=== PATIENT | female | born 1965 | race Caucasian/White ===

== ENCOUNTER → 2023-06-01 18:01 | Outpatient (REF) | payer OTHER, SELFPAY | LOC: RAD 18:01 | PROVIDERS: ATTENDING PHYSICIAN Emergency Medicine; FAMILY PHYSICIAN Family Medicine | DX: M54.50 Low back pain, unspecified (principal) | CPT/HCPCS: 72100; 72170 ==

== ENCOUNTER → 2023-08-04 06:32 | Day surgery (SDC) | payer OTHER, SELFPAY | LOC: GI 06:32 | PROVIDERS: ATTENDING PHYSICIAN Internal Medicine | DX: K22.89 Other specified disease of esophagus (principal); K44.9 Diaphragmatic hernia without obstruction or gangrene; R12 Heartburn | CPT/HCPCS: 43239; 88305 ==

== ENCOUNTER 2023-08-04 16:24 | Emergency (ER) | payer OTHER, SELFPAY ==
[2023-08-04 16:38] VITALS: BP 125/74; BMI 27.3
[2023-08-04] MEDS: ZOFRAN ODT (ORALLY DISINTEGRATING) 4 MG PO (16:43)
[2023-08-04] MEDS: TYLENOL 1000 MG PO (16:44)
[2023-08-04 17:20] LABS: % Basophils 0.2 % (0-2); % Eosinophils 0.8 % (0-6); % Immature Granulocytes 0.2 % (0-0.5); % Lymphocytes 4.7 % (20.5-51.1); % Neutrophils 92.1 % (42.2-75.2); Absolute Lymphocytes 0.2 10^3/uL (1.2-3.4); Absolute Monocytes 0.1 10^3/uL (0.1-0.6); Absolute Neutrophils 4.7 10^3/uL (1.4-6.5); Hematocrit 39.9 % (37.0-47.0); Hemoglobin 13.4 g/dL (12.0-16.0); Mean Corp Hgb Conc. 33.6 g/dL (33.0-37.0); Mean Corpuscular Hgb 28.4 pg (27.0-31.0); Mean Corpuscular Volume 84.5 fL (81.0-99.0); Mean Platelet Volume 9.5 fL (7.4-10.4); Nucleated Red Blood Cells % 0 %; Platelet Count 188 10^3/uL (130-400); Red Blood Cell Count 4.72 10^6/uL (4.20-5.40); Red Cell Dist. Width 13.1 % (11.5-14.5); White Blood Cell Count 5.1 10^3/uL (4.8-10.8)
[2023-08-04 17:34] LABS: ALT (SGPT) 18 U/L (0-35); AST (SGOT) 19 U/L (14-36); Albumin 4.2 g/dl (3.5-5.0); Alkaline Phosphatase 66 U/L (38-126); Blood Urea Nitrogen 25 mg/dl (7-17); Calcium 9.4 mg/dl (8.4-10.2); Carbon Dioxide 24 mmol/L (22-30); Chloride 104 mmol/L (98-107); Estimated Creatinine Clearance 72 ml/min; Glucose 118 mg/dl (70-99); Lactic Acid 0.9 mmol/L (0.7-2.0); Potassium 3.9 mmol/L (3.5-5.1); Sodium 133 mmol/L (135-145); Total Bilirubin 0.5 mg/dl (0.2-1.3); Total Protein 7.2 g/dl (6.3-8.2); eGFR > 60.00
--- NOTE | 2023-08-04 19:25 | ED.GENMED ---
Addendum entered and electronically signed by Zechariah Multani DO 08/08/23 16:25:
Correction
pt was told by her GI physician that she did not aspirate
Original Note:
History of Present Illness
General
Chief Complaint: Fever
Source: patient and records
Exam Limitations: none
Time Seen by Provider: 08/04/23 19:13
Nursing documentation reviewed up to this point in time: agreed with
Travel History
Have you had any contact with someone who has COVID-19?: No
Do you have any symptoms of coronavirus? Fever > 100 degrees, chills, cough, shortness of breath, sore throat, loss of taste or smell, muscle aches, or headache?: No
History of Present Illness
History of Present Illness:
58-year-old female underwent upper endoscopy today with Dr. Beach since procedure she is felt fatigued, low-grade fever measured tympanically nausea vomiting after having a shake, no coughing no abdominal pain no dysuria no calf pain she was told by
the GI doctor she did aspirate, however was sent here to be evaluated
She takes omeprazole
Past History
Past History
ED Past Medical History: GERD (Hiatal hernia)
ED Past Surgical History: Other (Kidney donor)
Social History
Tobacco: Non-smoker
Alcohol: None
Drug: None
Personal:
Living: with family
Employment: Employed
Review of Systems
Review of Systems
Constitutional: Reports fever and fatigue
Respiratory: Denies cough or trouble breathing
ABD/GI: Reports nausea and vomiting; Denies abdominal pain
: Reports no symptoms
Musculoskeletal: Reports no symptoms
Neurological: Reports weakness
Endocrine: Reports no symptoms
Phy Exam
Physical Exam
Physical Exam:
Physical Exam
General: 58 female looks slightly uncomfortable but not
Neck: Lips are moist
Heart: s1/s2 regular rate and rhythm, no murmur. equal radial pulses.
Lungs: no acute respiratory distress. clear bilaterally
Abdomen: Soft nontender
Neuro: alert and oriented. no focal neurological deficits
Skin: no rash
Psychiatric: well kept. interactive and cooperative
Extremities: no edema. no calf tenderness.
Course
Orders/Labs/Results
Orders:
Orders
08/04/23 16:42
Acetaminophen [Tylenol] 1,000 mg .ROUTE .STK-MED ONE
Ondansetron Orally Disint [Zofran Odt (Orally Disintegrating)] 4 mg .ROUTE .STK-MED ONE
08/04/23 16:43
Ondansetron Orally Disint [Zofran Odt (Orally Disintegrating)] 4 mg PO NOW STA
08/04/23 16:44
Acetaminophen [Tylenol] 1,000 mg PO NOW STA
08/04/23 17:00
Complete Blood Count/With Diff Urgent
Comprehensive Metabolic Panel Urgent
Lactic Acid Urgent
Blood Culture Urgent
AUDELIA Source: Blood/Venous
Specimen Description:
08/04/23 19:23
0.9% Sodium Chloride 1000 ml [Nss] 1,000 ml IV BOLUS
CR Chest - 2 Views Urgent
Comment:
Reason For Exam: fever
08/04/23 19:43
COVID-19 Antigen Urgent
Source: Nasal Swab
Influenza A+B Rapid Molecular Urgent
AUDELIA Source: Nasal Swab
Specimen Description:
08/04/23 20:57
Urinalysis Reflex To Culture Urgent
Blood Culture Urgent
AUDELIA Source: Blood/Venous
Specimen Description:
Ondansetron Injectable [Zofran] 4 mg IV NOW STA
Abnormal Lab Results
08/04/23
17:00
Absolute Lymphs (auto) 0.2 L 10^3/uL
(1.2-3.4)
Neutrophils % 92.1 H %
(42.2-75.2)
Lymphocytes % 4.7 L %
(20.5-51.1)
Sodium 133 L mmol/L
(135-145)
BUN 25 H mg/dl
(7-17)
Glucose 118 H mg/dl
(70-99)
08/04/23 17:00
08/04/23 17:00
Vital Signs
Initial and Last Documented VS:
Initial Vital Signs
Temp Pulse Resp BP Pulse Ox
100.2 F 97 18 125/74 98
08/04/23 16:38 08/04/23 16:38 08/04/23 16:38 08/04/23 16:38 08/04/23 16:38
Last Documented Vital Signs
Temp Pulse Resp BP Pulse Ox
100.2 F 97 18 115/54 98
08/04/23 16:38 08/04/23 16:38 08/04/23 16:38 08/04/23 19:47 08/04/23 16:38
MDM/Problems Addressed
Differential Diagnosis Includes:
Coincidental viral syndrome, aspiration no signs of DVT, other
MDM/Problems Addressed:
Fever nausea
Chronic conditions affecting care:
GERD
*Radiology
Radiology exam reviewed: preliminary read by ED provider
*Pulse Oximetry
Patient hypoxic: no
*Critical Care Note
Total Time (30-74mins, 75-104mins- exclusive of procedures): Not Applicable
Update Note
Update Note:
Update labs noted, chest x-ray noted for report pending, patient feeling better abdomen is soft and nontender will send screening urine and blood culture, message sent to on-call GI
Patient instructured to return if worsening symptoms
ED Attending Note
-
Portions of this chart may have been created with voice recognition software.� Occasional wrong word or��sound alike� substitutions may have occurred due to the inherent limitations of voice recognition software.
Discharge Plan
Departure
Patient Disposition: Home (Routine Discharge)
Date of Disposition: 08/04/23
Time of Disposition: 20:58
Patient with high blood pressure during this ER visit?: No
Condition: Good
Covid-19: Negative COVID-19
Discharge Problem:
Vomiting
Instructions: Fever, Adult (DC)
Prescriptions:
No Action
ibuprofen 600 MG tablet
600 mg PO Q6 Qty: 20 0RF
Referrals:
Edwin Phillips MD [Family Provider] - Next open appointment
Activity Restrictions/Additional Instructions:
Tylenol as needed for fever Zofran as needed for nausea vomiting return to the ER for worsening symptoms
Follow-up with your primary care provider and/or slasher tender
Interventions
Interventions:
*Risk Screen - Suicide Last Done: 08/04/23 16:38
*Neglect/Abuse Screening Last Done: 08/04/23 16:38
ED- Fall Risk Assessment Last Done: 08/04/23 16:38
Discharge Date and Time
Print Language: IVORIAN
[2023-08-04] MEDS: NSS 1000 IV (19:42)
[2023-08-04 19:47] VITALS: BP 115/54
[2023-08-04 20:00] VITALS: BP 103/63
[2023-08-04 20:11] LABS: COVID-19 Antigen Negative (Negative)
[2023-08-04 21:00] VITALS: BP 108/58
[2023-08-04] MEDS: ZOFRAN 4 MG IV (21:04)
[2023-08-04 21:18] LABS: Urine Albumin Negative (Neg - Trace); Urine Bilirubin Negative (Negative); Urine Character Clear (Clear); Urine Color Yellow; Urine Glucose Negative (Negative); Urine Ketone Negative (Negative); Urine Leukocyte Trace (Negative); Urine Nitrite Negative (Negative); Urine Occult Blood 2+ (Negative); Urine Urobilinogen Negative (Neg - 1+)
[2023-08-04 21:25] LABS: Urine Squamous Cell 0-2 /LPF (Few); Urine White Cell 0-2 /HPF (0-5)
== END 2023-08-04 21:25 | disposition home or self-care (01) ==
LOC: EMR 16:24
PROVIDERS: Emergency Medicine; EMERGENCY PHYSICIAN Emergency Medicine; FAMILY PHYSICIAN Family Medicine
DX: R50.9 Fever, unspecified (principal)
CPT/HCPCS: 99282; 96374; 96361; 71046; 80053; 81003; 81015; 83605; 85025; 87040; 87502; 87811

== ENCOUNTER → 2024-02-15 16:45 | Outpatient (REF) | payer OTHER, SELFPAY | LOC: WDC 16:45 | PROVIDERS: ATTENDING PHYSICIAN Family Medicine | DX: Z12.31 Encounter for screening mammogram for malignant neoplasm of breast (principal) | CPT/HCPCS: 77063; 77067 ==

== ENCOUNTER → 2024-09-27 13:41 | Outpatient (REF) | payer OTHER, SELFPAY | LOC: DHSLP 13:41 | PROVIDERS: ATTENDING PHYSICIAN Family Medicine | DX: G47.33 Obstructive sleep apnea (adult) (pediatric) (principal) | CPT/HCPCS: 95800 ==

== ENCOUNTER → 2024-10-22 10:38 | Outpatient (REF) | payer OTHER, SELFPAY | LOC: RAD 10:38 | PROVIDERS: ATTENDING PHYSICIAN Internal Medicine; FAMILY PHYSICIAN Family Medicine | DX: R13.10 Dysphagia, unspecified (principal) | CPT/HCPCS: 74221 ==

== ENCOUNTER → 2024-11-06 09:30 | Outpatient (REF) | payer OTHER, SELFPAY | LOC: REG 09:30 | PROVIDERS: ATTENDING PHYSICIAN Internal Medicine; FAMILY PHYSICIAN Family Medicine | DX: T17.208A Unspecified foreign body in pharynx causing other injury, initial encounter (principal) | CPT/HCPCS: 74230 ==

== ENCOUNTER 2024-12-06 06:25 | Day surgery (SDC) | payer OTHER, SELFPAY | END 2024-12-06 13:25 | disposition home or self-care (01) | LOC: GI 06:25 | PROVIDERS: ATTENDING PHYSICIAN Internal Medicine | DX: Z12.11 Encounter for screening for malignant neoplasm of colon (principal); K64.4 Residual hemorrhoidal skin tags; K64.9 Unspecified hemorrhoids; R13.12 Dysphagia, oropharyngeal phase; R12 Heartburn; K44.9 Diaphragmatic hernia without obstruction or gangrene; D12.4 Benign neoplasm of descending colon; K63.5 Polyp of colon; K63.89 Other specified diseases of intestine; K22.89 Other specified disease of esophagus | CPT/HCPCS: 45385; 43239; 88305 ==

== ENCOUNTER → 2025-02-18 17:21 | Outpatient (REF) | payer OTHER, SELFPAY | LOC: WDC 17:21 | PROVIDERS: ATTENDING PHYSICIAN Obstetrics & Gynecology; FAMILY PHYSICIAN Family Medicine | DX: Z12.31 Encounter for screening mammogram for malignant neoplasm of breast (principal) | CPT/HCPCS: 77063; 77067 ==